=== PATIENT | male | born 1960 | race Hispanic/Latino ===

== ENCOUNTER → 2019-12-02 | Day surgery (SDC) | payer BC ==
[~2019-12-02] MED LIST: AMLODIPINE BESYL5 MG PO; ASPIRIN81 MG PO; FENTANYL CITRATE/PF 100MCG/2 ML INJ ONE; LOSARTAN-HCTZ1 EAC2 PO; MIDAZOLAM HCL 2 MG/2 ML VIAL ONE; NEXIUM40 MG PEG; PROPOFOL IV EMULSION 10 MG/ML 50 ML VIAL ONE
[2019-12-02 14:20] VITALS: BP 126/89
== END | disposition home or self-care (01) ==
LOC: OR 12:26 → EDSEX 16:00
PROVIDERS: ATTEND Internal Medicine Gastroenterology
DX: K21.9 Gastro-esophageal reflux disease without esophagitis (principal); K31.7 Polyp of stomach and duodenum; K29.50 Unspecified chronic gastritis without bleeding; K29.80 Duodenitis without bleeding; K44.9 Diaphragmatic hernia without obstruction or gangrene; K64.8 Other hemorrhoids; D72.820 Lymphocytosis (symptomatic); I10 Essential (primary) hypertension; Z01.810 Encounter for preprocedural cardiovascular examination; Z79.82 Long term (current) use of aspirin; Z79.899 Other long term (current) drug therapy
CPT/HCPCS: 43239; 45378; 93005; J2250; J2704; J3010